=== PATIENT | female | born 1970 | race American Indian/Alaskan Native ===

== ENCOUNTER 2019-08-09 05:46 | Day surgery (SDC) | payer OTHER ==
--- NOTE | 2019-08-07 12:14 | Anesthesia Consultation ---
Anesthesia Consult and Med Hx Date of service: 08/09/19 - Airway Anesthetic Teeth Evaluation: Good ROM Head & Neck: Adequate Mental/Hyoid Distance: Adequate Mallampati Class: Class II Intubation Access Assessment: Probably Good - Pre-Operative Health Status ASA Pre-Surgery Classification: ASA2 Proposed Anesthetic Plan: General - Pulmonary Hx Smoking: Yes - Cardiovascular System Hx Hypertension: No (ETT last year ok per pt)
--- NOTE | 2019-08-08 19:05 | History and Physical Report ---
History of Present Illness Date of examination: 08/07/19 History of present illness: This is a 48 years old female who presents with menstrual disorder. The symptoms began >2 year ago. On a scale of mild to severe, the intensity is described as a severe. She complains of heavy bleeding, but denies irregular menses, mid-cycle spotting, lack of menses, dysmenorrhea, clotting, history of ovarian cysts, history of thyroid disease, history of PCOS, history of bleeding disorder, lightheadedness, fatigue and cramping. She bleeds heavy 5-6/7days and cycles length shorter now occurring [id number] since 03/2019. Past History : 5 Term Births: 3 Living Children: 3 Elect. 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 History Operations: Negative Past Surgical History Abnormal PAP: negative Infection History HIV Risk Eval: no Hx of STD: None Active Medications (reviewed today): None Current Allergies (reviewed today): No known allergies Past Medical History: Reviewed history from 06/03/2019 and no changes required: Vitamin D Deficiency Past Surgical History: Reviewed history from 06/03/2019 and no changes required: Negative Past Surgical History Family History Summary: Reviewed history and no changes required: 08/08/2019 Other family member - Has No Family History of Biliary Tract Cancer - Entered On: 06/28/2019 Other family member - Has No Family History of Breast Cancer - Entered On: 06/28/2019 Other family member - Has No Family History of Brain Cancer - Entered On: 06/28/2019 Other family member - Has No Family History of Colon Cancer - Entered On: 06/28/2019 Other family member - Has No Family History of Spontaneous DVT-PE - Entered On: 06/28/2019 Other family member - Has No Family History of Kidney/Urinary Tract Cancer - Entered On: 06/28/2019 Other family member - Has No Family History of Ovarvian Cancer - Entered On: 06/28/2019 Other family member - Has No Family History of Pancreatic Cancer - Entered On: 06/28/2019 Other family member - Has No Family History of Stomach Cancer - Entered On: 06/28/2019 Other family member - Has No Family History of Small Bowel Cancer - Entered On: 06/28/2019 Other family member - Has No Family History of Uterine Cancer - Entered On: 06/28/2019 Social History: Reviewed history from 06/03/2019 and no changes required: Patient is Smoking History: Patient currently smokes every day. Patient has been counseled to quit. Risk Factors: Smoked Tobacco Use: Current every day smoker Smokeless Tobacco Use: Never Passive smoke exposure: no Drug use: no HIV high-risk behavior: no Alcohol use: yes Exercise: yes Seatbelt use: 100 % Mammogram History: Date of Last Mammogram: 06/04/2019 PAP Smear History: Date of Last PAP Smear: 10/09/2018 Previous Tobacco Use: Signed On - 07/15/2019 Smoked Tobacco Use: Current every day smoker Cigarettes: Yes -- less than a pack daily pack(s) per day, Year started: 15 Smokeless Tobacco Use: Never Counseled to quit/cut down: no Passive smoke exposure: no Drug use: no HIV high-risk behavior: no Previous Alcohol Use: Signed On 07/15/2019 Alcohol use: yes Drinks per day: social Exercise: yes Seatbelt use: 100 % Colonoscopy History: Date of Last Colonoscopy: 05/19/2017 Mammogram History: Date of Last Mammogram: 06/04/2019 PAP Smear History: Date of Last PAP Smear: 10/09/2018 Physical Exam Appearance: well developed, well nourished, no acute distress Other Exams Lungs: no rales, rhonchi, or wheezes Heart: S1, S2, no murmur, rub, or gallop Genitourinary Exam Uterus: deferred for EUA Impression & Recommendations: Problem # 1: Excessive and frequent menstruation with regular cycle (ICD-626.2) ([id number]) Diagnosis explained to patient . Questions answered. Discussed with patient various medical and surgical therapies common for treatment: Hormonal/medical therapy,endometrial ablation or hysterectomy. She desires conservatiove surgical intervention in the form of endometrial ablation. She was informed this procedure is not to stop her periods but to decrease the flow and she may have heavy bleeding again that may require further surgical therapy. She was informed this procedure will not prevent . Consent reviewed and signed . Possible laparoscopy or laparotomy explained to patient. The risks and alternatives for this surgery were reviewed with the patient. She was informed of possible bleeding, infection, injury to bowel, bladder, ureters or other adjacent organs. The patient was instructed/informed the following: The normal length of hospital stay for this procedure. Nothing to eat or drink after midnight the evening prior to surgery. Clear liquids the day before surgery. Pre-op instruction sheets given. Infection precautions reviewed, patient to call for any signs or symptoms of infection. The usual discomforts associated with this procedure were detailed. Proper use of pain medicines was reviewed. Patient was given ample opportunity to have all her questions answered before signing informed consent. Problem # 2: Fibroids of uterus; Intramural (ICD-218.1) ([id number]) She's aware that endometrial ablation will not treat the fibroid. Medications and Allergies Allergies Allergy/AdvReac Type Severity Reaction Status Date / Time No Known Allergies Allergy Verified 08/07/19 12:12 Home Medications Medication Instructions Recorded Confirmed Last Taken Type Cyclobenzaprine [Flexeril] 10 mg PO DAILY 08/07/19 08/07/19 Unknown History Ergocalciferol [Vitamin D2] 1 cap PO QWEEK 08/07/19 08/07/19 Unknown History Active Meds: Active Medications Lactated Ringer's (Lactated Ringers) 1,000 mls @ 100 mls/hr IV DIRECT CJ Cefazolin Sodium (Ancef/Sterile Water 2 Gm/20 Ml) 2 gm in 20 mls @ 80 mls/hr IV PREOP NR; Protocol Stop: 08/09/19 23:59 Midazolam HCl (Versed) 2 mg IV PREOP NR Stop: 08/09/19 23:00 Assessment and Plan - Patient Problems (1) Excessive and frequent menstruation with regular cycle Status: Chronic (2) Fibroid Status: Chronic (3) Smoker Status: Chronic
[~2019-08-09 05:46] MED LIST: LACTATED RINGERS 1,000 ML IV SCH; ceFAZolin/Water 2 GM/20 ML 2 GM/20 ML SYRINGE IV NR
[2019-08-09] MEDS ORDERED: MIDAZOLAM 2 MG/2 ML INJ IV NR (06:00)
[2019-08-09] MEDS ORDERED: fentaNYL 100 MCG/2 ML INJ ONE (07:22)
[2019-08-09] MEDS ORDERED: PROPOFOL 200 MG/20 ML VIAL IV ONE (07:23)
[2019-08-09] MEDS ORDERED: LIDOCAINE MPF (2%) 20 MG/1 ML VIAL 5 ML ONE (07:26)
[2019-08-09] MEDS ORDERED: HYDROmorphone 1 MG/1 ML INJ IV PRN (07:46)
--- NOTE | 2019-08-09 07:46 | Anesthesia Day of Surgery ---
Anesthesia Day of Surgery - Day of Surgery Patient Examined: Yes Patient H&P Reviewed: Yes Patient is NPO: Yes
[2019-08-09] MEDS ORDERED: ONDANSETRON 4 MG/2 ML INJ ONE (07:56)
[2019-08-09] MEDS ORDERED: dexAMETHasone 20 MG/5 ML VIAL ONE (07:56)
[2019-08-09] MEDS ORDERED: KETOROLAC 30 MG/1 ML INJ ONE (07:58)
[2019-08-09] MEDS ORDERED: SODIUM CHLORIDE 0.9% IRRIG SOLN 3000 ML IR ONE (08:30)
--- NOTE | 2019-08-09 09:19 | Discharge Summary ---
Providers - Providers Date of discharge: 08/09/19 Attending physician: MONTY COLLAZO Primary care physician: SHIKHA SIBLEY Hospitalization Condition: Good Procedures: Hysteroscopy D&C with Novasure ablation Hospital course: normal Disposition: DC-01 TO HOME OR SELFCARE - Discharge Diagnoses (1) Excessive and frequent menstruation with regular cycle Status: Chronic (2) Fibroid Status: Chronic (3) Smoker Status: Chronic Core Measure Documentation - Palliative Care Palliative Care/ Comfort Measures: Not Applicable - Core Measures Any of the following diagnoses?: none Exam - Constitutional Vitals: Temp Pulse Resp BP Pulse Ox 97.0 F L 67 24 133/85 100 08/09/19 06:25 08/09/19 06:25 08/09/19 08:57 08/09/19 06:25 08/09/19 06:25 General appearance: Present: no acute distress - Neck Neck: Present: supple - Respiratory Respiratory effort: normal - Cardiovascular Rhythm: regular - Extremities Extremities: no ischemia, No edema - Psychiatric Psychiatric: appropriate mood/affect, intact judgment & insight, memory intact, cooperative - Neurologic Neurologic: CNII-XII intact Plan Activity: other (no sex) Weight Bearing Status: Full Weight Bearing Diet: regular Special Instructions: no heavy lifting (Greater than 25lbs) Care Plan Goals: full recovery and resolution of menorrhagia Plan of Treatment: follow up in office as scheduled Health Concerns: Patient to ambulation, stop smoking and avoid sex until ok with provider to avoid VTE and infection and improve overall health Assessment: stable Follow up with: SHIKHA SIBLEY MD [Primary Care Provider] - 7 Days MONTY COLLAZO MD [Staff Physician] - 7 Days Prescriptions: Ibuprofen [Motrin 800 MG tab] 800 mg PO TID PRN #30 tablet PRN Reason: Pain oxyCODONE /ACETAMINOPHEN [Percocet 5/325 mg] 1 - 2 tab PO Q4HR PRN #7 tablet PRN Reason: Pain
--- NOTE | 2019-08-09 09:23 | Post Operative Note ---
Pre-op diagnosis: menorrhagia Post-op diagnosis: same Procedure: novasure ablation Anesthesia: GETA Surgeon: MONTY COLLAZO Estimated blood loss: minimal Pathology: list (endometrial tissue) Specimen disposition: to lab Condition: stable Disposition: PACU
[2019-08-09 09:50] VITALS: BP 138/82
--- NOTE | 2019-08-09 10:05 | Post Anesthesia Evaluation ---
- Post Anesthesia Evaluation Patient Participated: Yes Airway Patent: Yes Stable Respiratory Function: Yes Nausea/Vomiting: No Temp > 96.8F: Yes Pain Manageable: Yes Adequeate Hydration: Yes Anesthesia Complications: No
--- NOTE | 2019-08-09 15:41 | Operative Report ---
PREOPERATIVE DIAGNOSES: Menorrhagia, uterine fibroids, smoker. POSTOPERATIVE DIAGNOSES: Menorrhagia, uterine fibroids, smoker. PROCEDURE: Diagnostic hysteroscopy with cervical dilation and uterine curettage and NovaSure endometrial ablation. SURGEON: Dr. Hernandez. ANESTHESIA: General. COMPLICATIONS: None. ESTIMATED BLOOD LOSS: Minimum. DESCRIPTION OF PROCEDURE: After risks, benefits, complications, consequence and alternatives of this procedure discussed with the patient, she voiced understanding and desired to proceed. She was taken to the OR where general anesthesia was induced. She was placed in the dorsal lithotomy position and prepped and draped in the usual sterile fashion. Once a timeout was performed, Reeves catheter was introduced into the bladder. A bivalved speculum was introduced into the vagina. The anterior lip of the cervix was grasped with a single tooth tenaculum. The uterus was sounded to 8 cm. The cervix was dilated to allow the operative hysteroscope. Grossly normal uterine cavity and cervix was noted. Both tubal ostia were clearly visualized. There were two small submucosal fibroids noted with less than 5% noted inside the cavity. The cervical length was noted to be 3 cm. Uterine curettage was performed. Tissue was sent to pathology. Then the NovaSure endometrial ablation device was set up and the array was set at 5 cm corresponding to the uterine length. The array was released and noted to be working appropriately. It was then closed and inserted into the uterus. The array was released and seated. The width of the uterus was then noted to be 3.6 cm. Once the uterine cavity integrity was confirmed, ablation was performed for 58 seconds at 99 arevalo of energy. The array was then placed into the sheath and removed. The hysteroscope was reintroduced. Good ablated surfaces were noted. No obvious evidence of perforation was noted at which point the procedure was ended. The Reeves catheter was removed and noted to have approximately 75 mL of clear yellow urine. The tenaculum was removed. There was no bleeding noted. Counts were correct. The patient tolerated the procedure well and was taken to recovery room in stable condition. JOB# [id number] ANTHONYR/AILIN
== END 2019-08-09 05:47 | disposition home or self-care (01) ==
LOC: OR 05:46
PROVIDERS: ATTEND Obstetrics & Gynecology
DX: N92.0 Excessive and frequent menstruation with regular cycle (principal); D25.1 Intramural leiomyoma of uterus; I10 Essential (primary) hypertension; F17.210 Nicotine dependence, cigarettes, uncomplicated; Z79.899 Other long term (current) drug therapy; Z98.890 Other specified postprocedural states
CPT/HCPCS: 58563; 81025; 86850; 86900; 86901; 88305; A4217; J0690; J1100; J1170; J1885; J2250; J2405; J2704; J3010; J7120